=== PATIENT | female | born 1940 | race Caucasian/White ===

== ENCOUNTER 2020-04-04 10:16 | Inpatient (IN) | payer OTHER ==
[~2020-04-04] VITALS: Ht 152.4 cm; Wt 81.5 kg
[~2020-04-04 10:16] MED LIST: ACETAMINOPHEN325 M1 PO; COLACE 100 MG100 MG PO; COUMADIN 2 MG TA2 M1; INDAPAMIDE2.5 MG; MEDROLDOSEPACK PO; MINOCYCLINE HC100 M2 PO; MUCINEX600 MG PO; PREDNISONE 20 M20 MG PO; SYNTHROID175 MCG; TOPROL XL50 MG; ZOCOR 20 MG TAB20 M1 PO
[2020-04-04 10:22] VITALS: BP 116/71
[2020-04-04 10:35] LABS: ABSOLUTE BASOPHILS 0.1 thou/uL (0.0-0.2); ABSOLUTE EOSINOPHILS 0.1 thou/uL (0.0-0.7); ABSOLUTE LYMPHOCYTES 3.3 thou/uL (0.8-5.3); ABSOLUTE MONOCYTES 0.8 thou/uL (0.0-1.2); ABSOLUTE NEUTROPHILS 4.2 thou/uL (1.6-8.1); EOSINOPHILS 1.7 %; HEMATOCRIT 41.8 % (37.0-47.0); HEMOGLOBIN 14.6 gm/dL (12.0-15.0); LYMPHOCYTES 38.8 %; MCH 31.6 pg (26.0-34.0); MCHC 34.9 g/dL (28.0-37.0); MCV 90.7 fL (80.0-100.0); MONOCYTES 9.2 %; MPV 7.1 fl. (7.2-11.1); NUCLEATED RBCS 0 /100WBC; PLATELET COUNT* 405 thou/uL (150-400); POLYS 49.3 %; RBC 4.61 mil/uL (4.20-5.00); RDW-CV 13.1 % (10.5-14.5); WBC 8.5 thou/uL (4.0-11.0)
[2020-04-04 10:41] LABS: CALCIUM 9.1 mg/dL (8.5-10.1); CREATININE 1.2 mg/dL (0.6-1.3); POTASSIUM 3.1 mmol/L (3.5-5.1)
[2020-04-04 10:51] LABS: APTT 35.8 Seconds (25.0-31.3); INR 1.8; PROTIME 18.2 Seconds (9.20-11.50)
[2020-04-04 10:54] LABS: ALBUMIN 3.6 g/dL (3.4-5.0); CK-MB MASS 1.1 ng/mL (<0.5-3.6); MAGNESIUM 1.6 mg/dL (1.8-2.4); TOTAL BILIRUBIN 0.3 mg/dL (<0.1-1.0); TOTAL PROTEIN 7.7 g/dL (6.4-8.2)
--- NOTE | 2020-04-04 14:36 | EKG ---
[place] [address] ELECTROCARDIOGRAM REPORT Name: FITOMADELIN L Room: [place] [address] ADM IN [facility]#: [id number] Admission: 04/04/20 Attend Phys: Ruma Sandra, Discharge: Date of : 44 Date of Service: 04/04/20 1020 Report #: [id number] THIS REPORT FOR: //name// [facility] ED Test Date: 2020-04-04 Test Time: 10:20:36 Pat Name: MADELIN PAYTON Department: Room: [facility] Gender: F Press Box Custodian: ANABELA : 1940 Requested By: Duke Howell Order Number: [id number] MD: Jayden Horton Measurements Intervals [place] Rate: 99 P: 38 [place]: 193 QRS: 50 QRSD: 89 T: 103 QT: 368 QTc: 473 Interpretive Statements Sinus rhythm Borderline repol abnrm, anterolateral leads Compared to ECG 04/08/2011 10:13:59 Sinus tachycardia no longer present Ventricular premature complex(es) no longer present Electronically Signed On 04-04-2020 14:36:20 CDT by Jayden Horton [email or web address] <ELECTRONICALLY SIGNED> By: Jayden Horton MD, FAC 04/04/20 1436 1020 1020 Jayden Horton MD, FAC /EPI
[2020-04-04 17:15] VITALS: BP 156/84
[2020-04-04 18:00] VITALS: BP 160/89
[2020-04-04 19:45] VITALS: BP 167/91
[2020-04-05] VITALS (9 sets, daily range): BP systolic 108–177; BP diastolic 69–96
[2020-04-05 03:06] LABS: GLYCOHEMOGLOBIN (HGB A1C) 5.9 % (4.8-5.6)
[2020-04-05 04:37] LABS: HEMATOCRIT 39.5 % (37.0-47.0); HEMOGLOBIN 13.7 gm/dL (12.0-15.0); MCH 31.2 pg (26.0-34.0); MCHC 34.6 g/dL (28.0-37.0); MCV 90.2 fL (80.0-100.0); MPV 7.2 fl. (7.2-11.1); RBC 4.38 mil/uL (4.20-5.00); RDW-CV 13.2 % (10.5-14.5); WBC 6.6 thou/uL (4.0-11.0)
[2020-04-05 04:49] LABS: INR 1.8; PROTIME 18.2 Seconds (9.20-11.50)
[2020-04-05 04:56] LABS: ALBUMIN 3.2 g/dL (3.4-5.0); ALKALINE PHOSPHATASE 79 U/L (46-116); ANION GAP 7 mmol/L (7-16); BUN 16 mg/dL (7-18); CHLORIDE 102 mmol/L (98-107); CHOLESTEROL 240 mg/dL (<200); CO2 29 mmol/L (21-32); CREATININE 1.1 mg/dL (0.6-1.3); GLUCOSE 113 mg/dL (70-99); HDL CHOLESTEROL 43 mg/dL (>40); LDL CHOLESTEROL 167 mg/dL (<100); MAGNESIUM 1.8 mg/dL (1.8-2.4); POTASSIUM 3.3 mmol/L (3.5-5.1); SGOT 60 U/L (15-37); SGPT 35 U/L (30-65); SODIUM 138 mmol/L (136-145); TC:HDL 5.6 Ratio (Not establshd); TOTAL BILIRUBIN 0.4 mg/dL (<0.1-1.0); TRIGLYCERIDE 150 mg/dL (<150); VLDL 30 mg/dL (<40)
[2020-04-05 05:22] LABS: SERUM ASSESSMENT CLEAR; TROPONIN-I LEVEL 7.94 ng/mL (<0.06)
--- NOTE | 2020-04-05 08:25 | CON ---
[address] [address] CONSULTATION Name: MADELIN PAYTON Melissa Room: [address] IN .R.#: [id number] Admission: 04/04/20 Attend Phys: Ruma Sandra MD Discharge: Date of : 44 Report #: [id number] THIS REPORT FOR: //name// cc: Bandar Pichardo John E. DO THIS REPORT FOR: //name// CC: Bandar Pichardo DO Ruma Sandra DATE OF SERVICE: 04/04/2020 CARDIOLOGY CONSULTATION HISTORY OF PRESENT ILLNESS: The patient is a 79-year-old white female who I was asked to see in the ER today after she complained of chest pain. The patient states she had a stress test years ago. She has no previous history of heart disease. She is not very active because of arthritis. She was doing well until 8:00 this morning, she felt a burning in her chest, burning in her arms. Denied any diaphoresis, nausea. She has had no recent fever, cough, blood in her stool. She has had no trauma to her chest. No rash. She was given nitroglycerin in the Emergency Room and the pain improved. She denies exertional dyspnea, palpitations, syncope or peripheral edema. PAST MEDICAL HISTORY: She has had no surgical procedures. She has a history of hypertension. She had a previous stroke and was diagnosed with antiphospholipid syndrome. She has been diagnosed with lupus in the past. She has chronic back pain. MEDICATIONS: Consist of Synthroid, HCTZ, warfarin. ALLERGIES: SHE HAS ALLERGY TO PENICILLIN AND SULFA DRUGS. FAMILY HISTORY: Her sister had congestive heart failure. SOCIAL HISTORY: She is . She lives in [place]. Quit smoking years ago. No alcohol abuse. REVIEW OF SYSTEMS: She has a history of obesity, used to be 220 pounds. She now weighs 175 pounds. No history of asthma, liver disease, kidney disease, cancer, psychiatric illness, chronic skin condition. PHYSICAL EXAMINATION: GENERAL: Revealed an elderly female lying in bed. She appeared in no distress. VITAL SIGNS: She had a blood pressure of 160/70, pulse [place] 90[place] [address] CONSULTATION Name: MADELIN PAYTON Room: [address]#: [id number] Admission: 04/04/20 Attend Phys: Ruma Sandra MD Discharge: Date of : 44 Report #: [id number] afebrile. HEENT: She was anicteric. Conjunctivae are pink. Mucous membranes moist. NECK: Veins nondistended. No carotid bruits. Neck supple. CHEST: Clear to auscultation. CARDIOVASCULAR: Regular rate and rhythm. ABDOMEN: Soft, nontender. EXTREMITIES: Had no edema. Posterior tibial pulse 2+ bilaterally. SKIN: Cool and dry. NEUROLOGIC: Nonfocal. IMAGING: Her ECG on admission showed a sinus rhythm, nonspecific ST-segment changes. Her workup in the Emergency Room, she had a portable chest x-ray that showed normal heart size and clear lung gutierrez. She actually had a CT scan of the chest with contrast using a PE protocol that showed no pulmonary embolus. LABORATORY WORK: Sodium 133, potassium 3.1, creatinine 1.2, glucose 199. Her troponin was 0.06 on admission, is now 9.0. LDL in 2010 was actually 144. Her INR is 1.8. Her white blood cell count 8.5, hemoglobin 14.6. IMPRESSION AND RECOMMENDATIONS: 1. Type 1 non-STEMI. Recommend cardiac catheterization. 2. History of antiphospholipid syndrome. I would hold warfarin at this time. 3. Hypertension. The patient is on a diuretic. 4. Hyperlipidemia. Recommend a statin drug. 5. History of lupus. <ELECTRONICALLY SIGNED> By: Jayden Horton MD, FACC 04/05/20 0825 1653 2031Drodriguez Horton MD, FACC /nt
--- NOTE | 2020-04-05 10:41 | EKG ---
[place] [address] ELECTROCARDIOGRAM REPORT Name: FITOMADELIN Room: [address] IN [facility].#: [id number] Admission: 04/04/20 Attend Phys: Ruma Sandra, Discharge: Date of : 44 Date of Service: 04/05/20 0819 Report #: [id number] THIS REPORT FOR: //name// [facility] Test Date: 2020-04-05 Test Time: 08:19:33 Pat Name: MADELIN PAYTON Department: Room: [facility] Gender: F Devulcanizer Head: : 1940 Requested By: Jayden Horton Order Number: [id number] Alexis MD: Jayden Horton Measurements Intervals [place] Rate: 78 P: 66 W[place]: 174 QRS: 27 QRSD: 94 T: -81 QT: 470 QTc: 536 Interpretive Statements Sinus rhythm Borderline repolarization abnormality Prolonged QT interval Compared to ECG 04/04/2020 10:20:36 Prolonged QT interval now present Electronically Signed On 04-05-2020 10:41:30 CDT by Jayden Horton [email or web address] <ELECTRONICALLY SIGNED> By: Jayden Horton MD, [facility] 04/05/20 1041 8 8 Jayden Horton MD, [facility] /EPI
[2020-04-05] MEDS ORDERED: LIPITOR 40 MG T40 M1 PO (15:34)
[2020-04-05] MEDS ORDERED: NITRO-BID1 GM TOP (15:34)
[2020-04-05] MEDS ORDERED: ASPIRIN325 PO (15:34)
[2020-04-05] MEDS ORDERED: METOPROLOL TART25 MG PO (15:34)
--- NOTE | 2020-04-05 16:56 | 2DMMODE ---
[place] [address] 2 D/M-MODE ECHOCARDIOGRAM Name: FITOMADELIN L Room: [address] IN [facility]#: [id number] Admission: 04/04/20 Attend Phys: Ruma Sandra, Discharge: 04/05/20 Date of : 44 Date of Service: 04/05/20 1656 Report #: [id number] THIS REPORT FOR: cc: Bandar Pichardo John E. DO Liston, Michael J. MD [facility] ~ APPROVED REPORT Study performed: 04/05/2020 14:14:44 EXAM: Comprehensive 2D, Doppler, and color-flow Echocardiogram Patient Location: In-Patient Room #: [facility] Status: routine BSA: 1.96 HR: 85 bpm BP: 127/72 mmHg Rhythm: NSR Other Information Study Quality: Good Indications Non STEMI CAD 2D Dimensions IVSd: 9.33 (7-11mm) LVOT Diam: 19.89 (18-24mm) LVDd: 39.50 mm PWd: 9.87 (7-11mm) Ascending Ao: 32.06 (22-36mm) LVDs: 26.57 (25-40mm) Aortic Root: 30.29 mm Volumes Left Atrial Volume (Systole) LA ESV Index: 17.90 mL/m2 Aortic Valve AoV Peak Javier.: 1.67 m/s AO Peak Gr.: 11.22 mmHg LVOT Max P.51 mmHg AO Mean Gr.: 6.78 mmHg LVOT Mean P.27 mmHg LVOT Max V: 0.79 m/s AO V2 VTI: 33.54 cm LVOT Mean V: 0.52 m/s SOLOMON (VTI): 1.48 cm2 LVOT V1 VTI: 16.03 [place] [address] 2 D/M-MODE ECHOCARDIOGRAM Name: MADELIN PAYTON Room: [address] IN [facility].#: [id number] Admission: 04/04/20 Attend Phys: Ruma Sandra, Discharge: 04/05/20 Date of : 44 Date of Service: 04/05/20 1656 Report #: [id number] TDI Medial E' Javier.: 0.07 m/s Lateral E' Javier.: 0.07 m/s Pulmonary Valve PV Peak Javier.: 0.88 m/s PV Peak Gr.: 3.10 mmHg Left Ventricle The left ventricle is normal size. There is a focal area of akinesis involving the apical septal wall. Global LV systolic function is preserved. Mild concentric left ventricular hypertrophy. Left ventricular systolic function is normal. LVEF is 55-60%. Transmitral Doppler flow pattern suggests impaired LV relaxation. Right Ventricle The right ventricle is normal size. The right ventricular systolic function is normal. Atria The left atrium size is normal. The right atrium size is normal. Aortic Valve Moderate aortic valve sclerosis. No aortic regurgitation is present. Mild to moderate aortic stenosis. Mitral Valve There is mitral annular calcification. There is no mitral valve regurgitation noted. No evidence of mitral valve stenosis. Tricuspid Valve The tricuspid valve is normal in structure. Unable to assess PA pressure. Trace tricuspid regurgitation. Pulmonic Valve The pulmonary valve is normal in structure. There is no pulmonic valvular regurgitation. Great Vessels The aortic root is normal in size. IVC is normal in size and collapses >50% with inspiration. Pericardium There [place] [address] 2 D/M-MODE ECHOCARDIOGRAM Name: MADELIN PAYTON Room: [address]#: [id number] Admission: 04/04/20 Attend Phys: Ruma Sandra, Discharge: 04/05/20 Date of : 44 Date of Service: 04/05/20 1656 Report #: [id number] <Conclusion> The left ventricle is normal size. Mild concentric left ventricular hypertrophy. Left ventricular systolic function is normal. LVEF is 55-60%. Transmitral Doppler flow pattern suggests impaired LV relaxation. There is a focal area of akinesis involving the apical septal wall. Global LV systolic function is preserved. Moderate aortic valve sclerosis. Mild to moderate aortic stenosis. There is mitral annular calcification. IVC is normal in size and collapses >50% with inspiration. <ELECTRONICALLY SIGNED> By: Zane Fernando MD, FACC 04/05/201655 55 55 Zane Fernando MD, FACC /INF
--- NOTE | 2020-04-09 08:32 | CARD ---
[address] [address] CARDIAC CATH REPORT Name: FITOMADELIN L Room: [address] IN [facility]#: [id number] Admission: 04/04/20 Attend Phys: Ruma Sandra MD Discharge: 04/05/20 Date of : 44 Report #: [id number] THIS REPORT FOR: //name// cc: Bandar Pichardo John E. DO ~ ADDENDUM APPROVED REPORT Study performed: 04/05/2020 12:12:42 Patient Details Patient Status: In-Patient Room #: 201 The patient is a 79 year-old female Event Personnel Zane Fernando MD: Diagnostic Intervention Specialist; Jayden Horton MD: C.O.D. Audit Clerk; Sabrina Reyes RN: Bicycle Subassembler; Ariana Mandel, RT(R):Scrub;Chantelle Cervantes RN, CVRN-BC: Monitor Procedures Performed Left Heart Cath w/wo Coronaries; Right Radial Artery Access, TR Band for Hemostasis; Aborted PCI of Left Anterior Descending. Indication Abnormal ECG, Non-STEMI , Chest pain Risk Factors Hypercholesterolemia, Hypertension Admission/Lab Medications/Medications given during procedure Aspirin, Glycoprotein IllbIlla Inhibitors, Heparin Low Molecular Weight Procedure Narrative The patient was brought electively to the Cardiac Catheterization Laboratory and was prepped and draped in a sterile manner. The right wrist was infiltrated with 1% Lidocaine subcutaneous anesthesia. A 6 sheath was inserted into the right radial artery. Coronary angiography was performed using coronary diagnostic catheters. The right coronary system was accessed and visualized with a Diagnostic Tig 4.0 catheter. The left coronary system was accessed and visualized with a Diagnostic Tig 4.0 catheter. The left ventricle was accessed and visualized with a Diagnostic Straight Pigtail catheter. Left ventriculogram was performed in CAT projection. Closure device was deployed with a 6 Fr vascband. [place] [address] CARDIAC CATH REPORT Name: MADELIN PAYTON Room: [address] IN ..#: [id number] Admission: 04/04/20 Attend Phys: Ruma Sandra MD Discharge: 04/05/20 Date of : 44 Report #: [id number] procedure well and there were no complications associated with the procedure. There was no hematoma. Two different sized balloon catheters were attempted in Crossing the Lesion in the Mid LAD. Both balloons were unsuccessful. Procedure was not continued at this point and patient is to be sent to [facility] for CABG. Intraoperative Conscious Sedation Sedation start time: 12:52 Case end Time: 13:43 Fentanyl 25.0 mcg Versed 1.0 mg Fluoro Time: 6.2 minutes Dose: DAP 45621 cGycm2 974 mGy Contrast Type and Amount: Visipaque 125 ml Coronary Angiography The patient's coronary anatomy is right dominant. Diagnostic Cath Left Main The left main coronary artery appears relatively normal and bifurcates into a left and descending and circumflex coronary artery. LAD The left atrial descending coronary artery is diffusely diseased and heavily calcified proximally with up to 90% proximal and 95% mid stenoses. The Diagonal 1 The first diagonal branch is small and diffusely diseased. Circumflex The circumflex coronary artery has a 90% ostial stenoses and a 90% stenosis at the takeoff of a large obtuse marginal branch. OM1 The first obtuse marginal branch has a 40% narrowing in its midportion but is otherwise free of significant disease. Right Coronary The right coronary is a large dominant vessel that is diffusely plaqued with sequential 90% stenoses proximally. R PDA The PDA is 50% narrowed its origin. RPLV The posterior lateral LV branch has a 50% narrowing proximally. Left Ventriculography The left ventricle is normal in size with Preserved contractility. The left ventricular ejection fraction is estimated to be 55-60%. There is akinesis of the apical portion of the inferior [place] [address] CARDIAC CATH REPORT Name: MADELIN PAYTON Room: [address] IN M.R.#: [id number] Admission: 04/04/20 Attend Phys: Ruma Sandra MD Discharge: 04/05/20 Date of : 44 Report #: [id number] The aortic pressure is 152/64 mmHg with a mean of 53 mmHg. The left ventricular pressure is 150/6 mmHg with a mean of mmHg. The left ventricular end diastolic pressure is 15 mmHg. Pullback from the left ventricle to the aorta revealed no gradient across the aortic valve. PCI Technique Lesion Anticoagulation was achieved with lovenox. bolus of iv aggrastat given Percutaneous coronary intervention was performed on the proximal left anterior descending artery segment. The lesion stenosis prior to intervention was 90% with PATTI 3 flow. A xblad3.5 Guide Catheter was used to engage the lm ostium. A bmw Interventional Guidewire was used to cross the lesion. BALLOON DILATION Repeat angiography revealed the following post-dilatation results: 90% stenosis. Unable to advance a 1.5 x 12 mm balloon to the area of stenosis. Difficulty appeared to be secondary to tortuosity of the lad, calcification, and severity of stenosis. Decided to abandon further efforts at PTCA. Final angiography reveals 90 % stenosis with APTTI 3 flow. Conclusion 1. Severe three vessel CAD 2. Mild LV systolic dysfunction 3. Unable to perform PTCA of the LAD Recommendations CABG Diagnostic Cath Approved by: Zane Fernando MD Date/Time: <ELECTRONICALLY SIGNED> By: Jayden Horton MD, FACC 04/09/20 0832 0832Damarisabel Horton MD, FACC /INF
[2020-04-13] MEDS ORDERED: METOPROLOL SUCC50 MG PO (15:02)
[2020-04-13] MEDS ORDERED: FERREX 150 PLU1 EAC1 PO (15:02)
[2020-04-13] MEDS ORDERED: ASPIR 8181 MG PO (15:02)
== END 2020-04-05 15:49 | disposition short-term general hospital (02) | DRG 250 ==
LOC: M.ERS 10:16 → M.TBA-ER 12:53 → M.2W 12:53
PROVIDERS: Family Medicine; ADMIT Internal Medicine; ATTEND Internal Medicine
DX: I21.4 Non-ST elevation (NSTEMI) myocardial infarction (principal); I50.33 Acute on chronic diastolic (congestive) heart failure; D68.61 Antiphospholipid syndrome; M79.7 Fibromyalgia; M35.9 Systemic involvement of connective tissue, unspecified; G89.29 Other chronic pain; I11.0 Hypertensive heart disease with heart failure; M35.00 Sjogren syndrome, unspecified; R73.9 Hyperglycemia, unspecified; I25.10 Atherosclerotic heart disease of native coronary artery without angina pectoris; Z20.828 Contact with and (suspected) exposure to other viral communicable diseases; E78.5 Hyperlipidemia, unspecified; M19.90 Unspecified osteoarthritis, unspecified site; Z79.899 Other long term (current) drug therapy; Z88.0 Allergy status to penicillin; Z88.1 Allergy status to other antibiotic agents; Z88.2 Allergy status to sulfonamides; Z86.73 Personal history of transient ischemic attack (TIA), and cerebral infarction without residual deficits; Z87.891 Personal history of nicotine dependence

== ENCOUNTER 2020-06-24 19:24 | Emergency (ER) | payer OTHER ==
[~2020-06-24] VITALS: Ht 167.6 cm; Wt 73.5 kg
[~2020-06-24 19:24] MED LIST changes: +ASPIR 8181 MG PO; +ASPIRIN325 PO; +FERREX 150 PLU1 EAC1 PO; +LIPITOR 40 MG T40 M1 PO; +METOPROLOL SUCC50 MG PO; +METOPROLOL TART25 MG PO; +NITRO-BID1 GM TOP
[2020-06-24] MEDS ORDERED: ACID REDUCER20 MG PO (19:33)
[2020-06-24] MEDS ORDERED: ULTRAM 50MG TAB50 MG PO (21:19)
[2020-06-24] MEDS ORDERED: MEDROLDOSEPACK PO (21:19)
[2020-06-24 21:56] VITALS: BP 172/81
== END 2020-06-24 21:57 | disposition home or self-care (01) ==
LOC: M.ERS 19:24
DX: S39.012A Strain of muscle, fascia and tendon of lower back, initial encounter (principal); M32.9 Systemic lupus erythematosus, unspecified; M79.7 Fibromyalgia; M19.90 Unspecified osteoarthritis, unspecified site; E78.5 Hyperlipidemia, unspecified; Z86.73 Personal history of transient ischemic attack (TIA), and cerebral infarction without residual deficits; Z88.0 Allergy status to penicillin; Z88.2 Allergy status to sulfonamides; X50.9XXA Other and unspecified overexertion or strenuous movements or postures, initial encounter; Y93.89 Activity, other specified; Y92.89 Other specified places as the place of occurrence of the external cause; Y99.8 Other external cause status

== ENCOUNTER 2020-08-21 09:47 | Inpatient (IN) | payer OTHER ==
[~2020-08-21] VITALS: Ht 167.6 cm; Wt 72.1 kg
[~2020-08-21 09:47] MED LIST changes: +ACID REDUCER20 MG PO; +ULTRAM 50MG TAB50 MG PO
[2020-08-21 09:50] VITALS: BP 168/93
[2020-08-21 10:29] LABS: ABSOLUTE BASOPHILS 0.1 thou/uL (0.0-0.2); ABSOLUTE EOSINOPHILS 0.1 thou/uL (0.0-0.7); ABSOLUTE LYMPHOCYTES 1.4 thou/uL (0.8-5.3); ABSOLUTE MONOCYTES 1.3 thou/uL (0.0-1.2); BASOPHILS 0.5 %; EOSINOPHILS 0.9 %; HEMATOCRIT 45.2 % (37.0-47.0); HEMOGLOBIN 14.9 gm/dL (12.0-15.0); MCH 29.1 pg (26.0-34.0); MCV 88.1 fL (80.0-100.0); MPV 7.4 fl. (7.2-11.1); NUCLEATED RBCS 0 /100WBC; PLATELET COUNT* 563 thou/uL (150-400); POLYS 81.6 %; RBC 5.13 mil/uL (4.20-5.00); RDW-CV 15.5 % (10.5-14.5); WBC 15.9 thou/uL (4.0-11.0)
[2020-08-21 10:40] LABS: CALCIUM 10.4 mg/dL (8.5-10.1); CREATININE 1.1 mg/dL (0.6-1.3)
[2020-08-21 10:41] LABS: APTT 33.8 Seconds (25.0-31.3); INR 2.1; PROTIME 20.9 Seconds (9.20-11.50)
[2020-08-21 10:43] LABS: POTASSIUM 2.9 mmol/L (3.5-5.1)
[2020-08-21 10:45] LABS: ALBUMIN 2.9 g/dL (3.4-5.0); TOTAL BILIRUBIN 0.3 mg/dL (<0.1-1.0); TOTAL PROTEIN 7.9 g/dL (6.4-8.2)
--- NOTE | 2020-08-21 10:53 | NUR ---
CIARAN NOTIFIED UPON PT RETURN FROM CT. PT CONNECTED TO BP AND PULSE OX SHE WAS PRIOR TO CT
[2020-08-21 14:27] LABS: POTASSIUM 3.2 mmol/L (3.5-5.1)
[2020-08-21 14:43] LABS: CALCIUM 9.5 mg/dL (8.5-10.1); CREATININE 0.9 mg/dL (0.6-1.3)
[2020-08-21 14:47] LABS: MAGNESIUM 1.9 mg/dL (1.8-2.4); PHOSPHORUS* 3.1 mg/dL (2.5-4.9)
--- NOTE | 2020-08-21 18:32 | NUR ---
WENT IN AND HAD PT DRINK REST OF MAG CITRATE. CLEANED PT UP AND PUT NEW CHUX UNDER HER. PT STILL WAITING FOR BED.
[2020-08-21 20:10] VITALS: BP 142/56
[2020-08-21 21:40] VITALS: BP 144/57
--- NOTE | 2020-08-22 00:16 | NUR ---
PATIENT ARRIVED FROM ER VIA CART TO ROOM 308. PT MOVED FROM CART TO BED WITH ASSIST OF THREE; PT DID NOT APPEAR TO BE ABLE TO HELP. PT LATER SCOOTED HERSELF UP IN BED USING HER FEET. PT ABLE TO TURN FROM SIDE TO SIDE. PT WAS NOT ANSWERING QUESTIONS AT BEGINNING OF ASSESSMENT BUT AFTER BED WAS SET UP PT ABLE TO ANSWER ALL QUESTIONS APPROPRIATELY. PT DENIES PAIN, SAYS SHE FEELS SAFE GOING HOME BUT HAS WEAKNESS IN LOWER EXTREMITIES AND 'JUST DOESN'T FEEL LIKE WALKING ANYMORE' SO USES W/CHAIR AT HOME. PT GIVEN MAG CITRATE IN ER AND HAD BOWEL MOVEMENT WHILE THERE. PT HAS HAD NO STOOL SINCE ADMISSION. PT ORIENTED TO ROOM/POLIIES AND VERBALIZES UNDERSTANDING. FREQUENTLY USED ITEMS AND CALL LIGHT WITHIN REACH. SIDERAILS UPX4 PER PT REQUEST AND BED ALARM ON. WILL CONTINUE TO [place].
[2020-08-22 05:30] LABS: ABSOLUTE EOSINOPHILS 0.2 thou/uL (0.0-0.7); ABSOLUTE LYMPHOCYTES 1.5 thou/uL (0.8-5.3); ABSOLUTE MONOCYTES 1.3 thou/uL (0.0-1.2); BASOPHILS 0.3 %; EOSINOPHILS 1.1 %; HEMATOCRIT 38.6 % (37.0-47.0); LYMPHOCYTES 11.7 %; MCH 29.1 pg (26.0-34.0); MCHC 32.9 g/dL (28.0-37.0); MCV 88.5 fL (80.0-100.0); MONOCYTES 10.2 %; MPV 7.8 fl. (7.2-11.1); NUCLEATED RBCS 0 /100WBC; POLYS 76.7 %; RBC 4.36 mil/uL (4.20-5.00); RDW-CV 15.4 % (10.5-14.5); WBC 13.1 thou/uL (4.0-11.0)
[2020-08-22 05:38] LABS: HEMOGLOBIN 12.7 gm/dL (12.0-15.0); PLATELET COUNT* 413 thou/uL (150-400)
[2020-08-22 05:45] LABS: INR 2.1; PROTIME 21.7 Seconds (9.20-11.50)
--- NOTE | 2020-08-22 05:55 | NUR ---
PATIENT SLEPT OFF AND ON DURING THIS SHIFT. PT HAD FOUR INCONTINENT BOWEL MOVEMENTS. BOWEL MOVEMENTS WERE VERY HARD ALONG WITH SOFTENED STOOL. PT HAS EXTREME PAIN WHEN SKIN IS CLEANED. SKIN IN GOOD CONDITION; BARRIER CREAM APPLIED. PT ABLE TO TURN HERSELF IN BED. FLUIDS/ANTIBIOTICS INFUSING PER DR ORDER. FREQUENTLY USED ITEMS AND CALL LIGHT WITHIN REACH. SIDERAILS UPX3 AND BED ALARM ON. WILL CONTINUE TO MONITOR.
[2020-08-22 06:07] LABS: ALBUMIN 2.4 g/dL (3.4-5.0); CREATININE 0.8 mg/dL (0.6-1.3); TOTAL BILIRUBIN 0.3 mg/dL (<0.1-1.0); TOTAL PROTEIN 6.6 g/dL (6.4-8.2)
[2020-08-22 06:13] LABS: POTASSIUM 2.6 mmol/L (3.5-5.1)
[2020-08-22 06:26] LABS: CALCIUM 9.3 mg/dL (8.5-10.1)
[2020-08-22 07:45] VITALS: BP 131/63
--- NOTE | 2020-08-22 10:42 | NUR ---
VISITED WITH PT. SHE WAS LYING IN BED. STATED SHE LIVES WITH HER . SHE SAID SHE THINKS SHE WILL HAVE DISCHARGE NEEDS SHE CANT WALK. SHE SAID SHE DID WELL AFTER HER BYPASS SURGERY. GOT STRONGER. HAD HH. BUT NOW SHE IS SO WEAK AND CANNOT GET UP. HER LEGS COLLAPSE. SHE HAS A WALKER,CANE AND WC. HAD HOME HEALTH WITH [facility] AFTER HER SURGERY. SHE WOULD WANT TO USE THEM AGAIN. SHE SAID SHE AND HER DON'T COOK. ASKED IF THEY HAD CHILDREN TO BRING FOOD IN. SHE SAID THEY DON'T LIKE THE FOOD THEY BRING OVER. SUGGESTED MEALS ON WHEELS. SHE MIGHT BE INTERESTED IN THIS. CM WILL FOLLOW BRIEFLY DISCUSSED GOING TO SNF. SHE DID NOT WANT TO GO DUE TO UNABLE TO BEING ABLE TO SEE HER .
[2020-08-22 16:00] VITALS: BP 144/68
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
--- NOTE | 2020-08-22 19:00 | NUR ---
I HAVE REVIEWED AND AGREE WITH [facility]
[2020-08-22 20:00] VITALS: BP 140/48
[2020-08-23 02:06] LABS: GLYCOHEMOGLOBIN (HGB A1C) 6.8 % (4.8-5.6)
--- NOTE | 2020-08-23 04:20 | NUR ---
PATIENT EXTREMELY SLEEPY AT BEGINNING OF SHIFT. PT WOKE AT MIDNIGHT TO SEE IF SHE FELT OK PT HAD NOT MOVED SINCE REASSESSMENT COMPLETED AROUND 1999. PT WAS WIDE AWAKE SAYING SHE WAS FINE, JUST SLEEPY. PT LATER CALLED SAID SHE NEEDED ASSISTANCE TO BSC. PT UP WITH ONE TO VOID. PT HAD EPISODE OF INCONTINENCE OF BOWEL WHILE SLEEPING. ASSISTANCE PROVIDED IN CLEANING UP THE PATIENT. PT RETURNED TO BED. DENIES PAIN/NAUSEA. FLUIDS/ANTIBIOTICS INFUSING PER DR ORDER. FREQUENTLY USED ITEMS AND CALL LIGHT WITHIN REACH. WILL CONTINUE TO MONITOR.
[2020-08-23 04:40] LABS: ABSOLUTE BASOPHILS 0.1 thou/uL (0.0-0.2); ABSOLUTE EOSINOPHILS 0.2 thou/uL (0.0-0.7); ABSOLUTE LYMPHOCYTES 1.9 thou/uL (0.8-5.3); ABSOLUTE MONOCYTES 0.9 thou/uL (0.0-1.2); ABSOLUTE NEUTROPHILS 7.6 thou/uL (1.6-8.1); BASOPHILS 0.5 %; EOSINOPHILS 1.9 %; HEMATOCRIT 36.1 % (37.0-47.0); LYMPHOCYTES 17.5 %; MCH 29.4 pg (26.0-34.0); MCHC 33.2 g/dL (28.0-37.0); MCV 88.5 fL (80.0-100.0); MONOCYTES 8.6 %; MPV 7.4 fl. (7.2-11.1); NUCLEATED RBCS 0 /100WBC; PLATELET COUNT* 389 thou/uL (150-400); POLYS 71.5 %; RBC 4.08 mil/uL (4.20-5.00); RDW-CV 15.4 % (10.5-14.5); WBC 10.7 thou/uL (4.0-11.0)
[2020-08-23 04:50] LABS: PROTIME 38.1 Seconds (9.20-11.50)
[2020-08-23 04:51] LABS: INR 3.9
[2020-08-23 04:59] LABS: PREALBUMIN 19.5 mg/dL (18.0-35.7)
[2020-08-23 05:05] LABS: ALBUMIN 2.3 g/dL (3.4-5.0); CALCIUM 8.6 mg/dL (8.5-10.1); CREATININE 0.8 mg/dL (0.6-1.3); POTASSIUM 3.4 mmol/L (3.5-5.1); TOTAL BILIRUBIN 0.3 mg/dL (<0.1-1.0); TOTAL PROTEIN 6.3 g/dL (6.4-8.2)
[2020-08-23 08:34] VITALS: BP 148/72
--- NOTE | 2020-08-23 14:56 | NUR ---
PT.IMTIAZ NOTED. POSSIBLE DISCHARGE TOMORROW ,HOME WITH HOME HEALTH. FAXED REFERRAL INFORMATION TO [facility]. PT.STILL REFUSING SNF.
[2020-08-23 16:18] VITALS: BP 124/62
--- NOTE | 2020-08-23 18:36 | NUR ---
PATIENT CURRENTLY LYING IN BED; HAS REMAINED A&OX4 THIS SHIFT HOWEVER HAS HAD DIARRHEA IN BED WITHOUT CALLING OUT FOR ASSISTANCE TO GET UP TO BSC FIRST. PATIENT REPOSITIONS SELF IN BED. PATIENT HAS DENIED PAIN THIS SHIFT. CALL LIGHT AND FREQUENTLY USED ITEMS WITHIN REACH.
[2020-08-23 20:00] VITALS: BP 128/58
--- NOTE | 2020-08-24 04:41 | NUR ---
PT A&O, MEDS GIVEN ORDERED. TYLENOL GIVEN FOR PAIN. POTASSIUM REPLACED. PT STATED DIARRHEA GOT BETTER. UP TO BSC WITH MODERATE ASSIST. CALL LIGHT WITHIN REACH. WILL CONTINUE TO MONITOR.
[2020-08-24 05:00] LABS: HEMATOCRIT 38.8 % (37.0-47.0); HEMOGLOBIN 12.9 gm/dL (12.0-15.0); MCH 29.4 pg (26.0-34.0); MCHC 33.2 g/dL (28.0-37.0); MCV 88.4 fL (80.0-100.0); MPV 7.4 fl. (7.2-11.1); RBC 4.39 mil/uL (4.20-5.00); RDW-CV 15.6 % (10.5-14.5); WBC 10.3 thou/uL (4.0-11.0)
[2020-08-24 05:03] LABS: INR 4.1; PROTIME 39.9 Seconds (9.20-11.50)
[2020-08-24 05:23] LABS: CALCIUM 8.7 mg/dL (8.5-10.1); CREATININE 0.8 mg/dL (0.6-1.3); POTASSIUM 3.4 mmol/L (3.5-5.1)
[2020-08-24 08:14] VITALS: BP 137/66
[2020-08-24 12:06] VITALS: BP 137/66
--- NOTE | 2020-08-24 14:00 | NUR ---
FAXED DISCHARGE SUMMARY AND ORDERS TO [facility] [phone]. [facility] HAD ACCEPTED PT.ON TO SERVICE AND WAS WAITING ON ORDERS. DISCUSSED WITH PT. AND . SHE WOULD LIKE A TRANSPORT WC TO BE ABLE TO FIT IN THE DOOR WAY OF HER BATHROOM. SHE SAID SHE CAN NO LONGER WALK FROM [place] WAY INTO BATHROOM. PER JAKE,INSURANCE CO.S DON'T USUALLY PAY FOR TRANSPORT CHAIRS. CHECKED WITH MEDICAL SUPPLY FOR TRANASPORT WC. [facility] AND [facility] BOTH HAVE IN STOCK. PRICES OBTAINED. THEY CANNOT DELIVER UNITL MON-TUES OF NEXT WEEK. PTS HOWEVER COULD GO TO PICK IT UP TODAY. INFORMED OF PRICES AND WIDTH OF CHAIR. WILL GO TO RENT ONE AT [facility] LOCATION. GAVE HIM ADDRESS AND PHONE NUMBERS. PUT NUMBER FOR MEALS ON WHEELS ON DISCHARGE PAPERS TO CALL TO CHECK ABOUT MEALS. PT.TO BE DISCHARGED ONCE RETURNS. SARA JEROME AWARE.
[2020-08-24 14:32] VITALS: BP 137/66
[2020-08-24 15:37] VITALS: BP 137/66
--- NOTE | 2020-08-24 16:33 | NUR ---
PATIENT GIVEN DISCHARGE INSTRUCTIONS AND MEDICATIONS REVIEWED, NO NEW PRESCRIPTIONS. IV REMOVED. PATIENT DENIES PAIN/QUESTIONS/CONCERNS PRIOR TO DISCHARGE. PATIENT LEFT UNIT WITH PERSONAL BELONGINGS VIA WC, ACCOMPANIED BY NURSING STAFF AND AT APPROX. 1635.
[2020-08-24 16:36] VITALS: BP 137/66
== END 2020-08-24 16:35 | disposition home health service (06) | DRG 372 ==
LOC: M.ERS 09:47 → M.3W 12:08 → M.TBA-ER 12:08 → M.3W 20:55
PROVIDERS: Emergency Medicine; Family Medicine; ADMIT Internal Medicine; ATTEND Internal Medicine
DX: A04.9 Bacterial intestinal infection, unspecified (principal); R65.10 Systemic inflammatory response syndrome (SIRS) of non-infectious origin without acute organ dysfunction; E44.0 Moderate protein-calorie malnutrition; K57.92 Diverticulitis of intestine, part unspecified, without perforation or abscess without bleeding; M79.7 Fibromyalgia; M19.90 Unspecified osteoarthritis, unspecified site; I25.10 Atherosclerotic heart disease of native coronary artery without angina pectoris; E78.5 Hyperlipidemia, unspecified; I10 Essential (primary) hypertension; E86.0 Dehydration; E83.52 Hypercalcemia; R73.9 Hyperglycemia, unspecified; M35.00 Sjogren syndrome, unspecified; E87.6 Hypokalemia; Z20.822 Contact with and (suspected) exposure to COVID-19; Z95.1 Presence of aortocoronary bypass graft; Z68.25 Body mass index [BMI] 25.0-25.9, adult; Z79.82 Long term (current) use of aspirin; Z79.899 Other long term (current) drug therapy; Z88.0 Allergy status to penicillin; Z88.2 Allergy status to sulfonamides; Z87.891 Personal history of nicotine dependence; Z79.01 Long term (current) use of anticoagulants; K56.41 Fecal impaction

== ENCOUNTER → 2020-09-28 | Outpatient (CLI) | payer OTHER ==
[2020-09-28 12:12] LABS: INR 4.4; PROTIME 42.9 Seconds (9.20-11.50)
== END ==
LOC: M.LAB 11:36
PROVIDERS: ATTEND Internal Medicine Cardiovascular Disease
DX: D68.61 Antiphospholipid syndrome (principal)

== ENCOUNTER → 2021-09-03 | Outpatient (CLI) | payer OTHER ==
[2021-09-03 09:47] LABS: INR 2.3; PROTIME 22.9 Seconds (9.20-11.50)
== END ==
LOC: M.LAB 09:04
PROVIDERS: ATTEND Internal Medicine Cardiovascular Disease
DX: D68.51 Activated protein C resistance (principal); Z79.01 Long term (current) use of anticoagulants